=== PATIENT | female | born 1965 | race Asian ===

== ENCOUNTER 2019-09-14 13:58 | Outpatient (CLI) | payer OTHER | END 2019-09-14 19:30 | disposition home or self-care (01) | LOC: RAD 13:58 | DX: M05.79 Rheumatoid arthritis with rheumatoid factor of multiple sites without organ or systems involvement (principal); M17.0 Bilateral primary osteoarthritis of knee; Z79.899 Other long term (current) drug therapy ==

== ENCOUNTER 2020-06-26 10:04 | Outpatient (CLI) | payer OTHER | END 2020-06-26 19:55 | disposition home or self-care (01) | LOC: RAD 10:04 | PROVIDERS: ATTEND Nurse Practitioner Family | DX: M05.79 Rheumatoid arthritis with rheumatoid factor of multiple sites without organ or systems involvement (principal); M17.0 Bilateral primary osteoarthritis of knee; M25.511 Pain in right shoulder; M25.512 Pain in left shoulder; Z79.899 Other long term (current) drug therapy ==

== ENCOUNTER 2021-03-12 10:00 | Outpatient (CLI) | payer OTHER | END 2021-03-12 21:46 | disposition home or self-care (01) | LOC: RAD 10:00 | PROVIDERS: ATTEND Nurse Practitioner Family | DX: M05.79 Rheumatoid arthritis with rheumatoid factor of multiple sites without organ or systems involvement (principal); M17.0 Bilateral primary osteoarthritis of knee; M25.561 Pain in right knee; M25.562 Pain in left knee ==

== ENCOUNTER → 2021-07-01 | Outpatient (CLI) | payer OTHER | LOC: RAD 12:42 | PROVIDERS: ATTEND Nurse Practitioner Family | DX: M05.79 Rheumatoid arthritis with rheumatoid factor of multiple sites without organ or systems involvement (principal); M17.0 Bilateral primary osteoarthritis of knee; M25.511 Pain in right shoulder; M25.512 Pain in left shoulder; Z79.899 Other long term (current) drug therapy ==

== ENCOUNTER 2022-06-17 13:59 | Outpatient (CLI) | payer OTHER ==
[2022-06-17 14:35] LABS: PLATELET COUNT 213 K/uL (152-353)
[2022-06-17 14:44] LABS: POTASSIUM 3.7 mmol/L (3.6-5.2)
== END 2022-06-17 21:01 | disposition home or self-care (01) ==
LOC: LABW 13:59
PROVIDERS: ATTEND Nurse Practitioner Family
DX: M05.79 Rheumatoid arthritis with rheumatoid factor of multiple sites without organ or systems involvement (principal); M17.0 Bilateral primary osteoarthritis of knee; M25.562 Pain in left knee; M79.672 Pain in left foot; Z79.899 Other long term (current) drug therapy; E55.9 Vitamin D deficiency, unspecified
CPT/HCPCS: 36415; 80053; 85027; 85652; 86140; 86480